=== PATIENT | male | born 1975 | race Caucasian/White ===

== ENCOUNTER 2016-11-10 00:56 | Emergency (ER) | payer BC ==
[2016-11-10] MEDS ORDERED: SODIUM CHLORIDE 0.9% 1,000 ML ONE ×2 (01:19→02:19)
[2016-11-10] MEDS ORDERED: ONDANSETRON 4 MG VIAL ONE ×2 (01:19→03:57)
[2016-11-10] MEDS ORDERED: PROMETHAZINE 25 MG/ML VIAL ONE (02:19)
[2016-11-10] MEDS ORDERED: DILAUDID 1 MG/ML AMP ONE (02:53)
== END 2016-11-10 04:21 | disposition home or self-care (01) ==
LOC: ER 00:56
DX: J10.1 Influenza due to other identified influenza virus with other respiratory manifestations (principal); J10.2 Influenza due to other identified influenza virus with gastrointestinal manifestations; R55 Syncope and collapse; R10.9 Unspecified abdominal pain; Z79.899 Other long term (current) drug therapy; I10 Essential (primary) hypertension; F41.1 Generalized anxiety disorder
CPT/HCPCS: 36415; 70450; 71010; 72125; 80053; 82947; 85025; 85610; 87804; 96361; 96374; 96375; 96376